=== PATIENT | male | born 1980 | race Caucasian/White ===

== ENCOUNTER 2021-02-17 14:18 | Emergency (ER) | payer OTHER ==
[2021-02-17] MEDS ORDERED: Diazepam 5 MG TAB ONE (15:04)
[2021-02-17] MEDS ORDERED: Ketorolac Tromethamine 30 MG/ML VIAL ONE (15:04)
== END 2021-02-17 16:58 | disposition left against medical advice (07) ==
LOC: ERS 14:18
DX: M62.830 Muscle spasm of back (principal); M54.2 Cervicalgia; F17.210 Nicotine dependence, cigarettes, uncomplicated
CPT/HCPCS: 96372; 99283; J1885

== ENCOUNTER 2021-03-26 09:13 | Inpatient (IN) | payer SELFPAY ==
[2021-03-26 10:44] LABS: #Eosinphils 0.3 thou/uL (0.0-0.7); #Lymphocytes 1.7 thou/uL (1.20-3.40); #Monocytes 0.5 thou/uL (0.11-0.59); #Neutrophils 6.5 thou/uL (1.40-6.50); %Basophils 0.2 % (0.0-1.0); %Eosinophils 2.9 % (0.0-10.0); %Lymphocytes 18.8 % (21.0-51.0); %Monocytes 5.8 % (0.0-10.0); %Neutrophils 72.3 % (42.0-75.0); Hemoglobin 16.4 g/dL (14.0-18.0); Mean Corpuscular HGB CONC 33.1 g/dL (32.0-36.0); Mean Corpuscular Hemoglobin 31.6 pg (27.0-31.0); Mean Corpuscular Volume 95.7 fL (78.0-98.0); Mean Platelet Volume 6.6 fL (7.4-10.4); Platelet Count 259 thou/uL (130-400); RBC Distribution Width 13.6 % (11.5-14.5); Red Blood Cell (RBC) Count 5.17 mill/uL (4.70-6.10)
[2021-03-26] MEDS ORDERED: Lorazepam 2 MG/ML VIAL ONE (11:44)
[2021-03-26] MEDS ORDERED: Morphine 4 MG/ML VIAL ONE (11:44)
[2021-03-26 12:07] LABS: Albumin 3.5 g/dL (3.5-5.0)
[2021-03-26 12:08] LABS: Chloride 109 mmol/L (98-107); Potassium 3.5 mmol/L (3.5-5.1); Sodium 140 mmol/L (136-145)
[2021-03-26 12:09] LABS: Calcium 8.9 mg/dL (7.8-10.44); Glucose 109 mg/dL (70-105)
[2021-03-26 12:10] LABS: Globulin 2.9 g/dL (2.4-3.5); Protein, Total 6.4 g/dL (6.0-8.3)
[2021-03-26 12:11] LABS: Anion Gap 12 mmol/L (10-20); Bilirubin, Total 0.3 mg/dL (0.2-1.2); Carbon Dioxide 23 mmol/L (22-29)
[2021-03-26 12:12] LABS: Alkaline Phosphatase 60 U/L (40-110); CRP (Inflammatory) 1.01 mg/dL (= or < 0.5)
[2021-03-26 12:13] LABS: Calc. Creatinine Clearance 0 mL/min (70-130)
[2021-03-26 12:14] LABS: BUN (Urea Nitrogen) 13 mg/dL (8.9-20.6)
[2021-03-26 12:15] LABS: ALT (SGPT) 30 U/L (8-55); AST (SGOT) 19 U/L (5-34)
[2021-03-26 12:33] LABS: SARS-CoV-2 NAA Rapid Test Not Detected (NotDetected)
[2021-03-26] MEDS ORDERED: Iopamidol-370 76% 500 ML 1 ML ONE (12:43)
[2021-03-26] MEDS ORDERED: Magnevist 469MG/ML 20 ML VIAL ONE ×4 (12:59)
[2021-03-26 14:15] LABS: Hemoglobin A1c 5.7 % (4.0-6.0)
[2021-03-26 16:59] VITALS: BMI 38.9
[2021-03-26 18:21] LABS: Syphilis Antibody Nonreactive (Nonreactive); Syphilis Antibody Index 0.05 S/CO (<1.00 Non-Reactive)
[2021-03-26] MEDS ORDERED: Acetaminophen/Codeine 30-300mg Tablet PO PRN (18:25)
[2021-03-26 18:26] LABS: Vitamin B12 316 pg/mL (211-911)
[2021-03-26] MEDS ORDERED: Pantoprazole 40 MG VIAL IVP SCH ×2 (18:30→21:00)
[2021-03-26 18:34] LABS: HBCM Index 0.05 S/CO (0-0.79); HBSAB Concentration Less than 8.00 mIU/mL; HBSAg Index 0.63 S/CO (0-0.99); HIV (1/2) Antibody/Antigen Non-Reactive (NonReactive); HIV 1/2 INDEX 0.12 S/CO (<1.00); Hep B Core Total Ab Non-Reactive (NonReactive); Hep B Core Total Index 0.09 S/CO (0-0.79); Hep B Surf AB Non-Reactive (NonReactive); Hep B Surf Ag Non-Reactive S/CO (NonReactive); Hep C IgG Ab Non-Reactive (NonReactive); Hep C Index 0.13 S/CO (0-0.79); Hepatitis B Core IgM Abs Non-Reactive (NonReactive)
[2021-03-26] MEDS ORDERED: FLU VACC QS2021-22(6MOS UP)/PF 60 MCG/0.5 ML SYRINGE IM ONE (18:45)
[2021-03-26] MEDS ORDERED: Dexamethasone 10 MG in Sodium Chloride 0.9% 50 ML IVPB SCH (18:45)
[2021-03-26] MEDS: traMADol HCl 50 MG TAB PO PRN (20:14)
[2021-03-26] MEDS: Sodium Chloride 0.9% 1,000 ML IV SCH (20:17)
[2021-03-26] MEDS ORDERED: Sterile Water 10 ML ONE (21:56)
[2021-03-26] MEDS: Acetaminophen 325 MG TAB PO PRN (23:19)
[2021-03-26 23:38] LABS: Amphetamine Detected (NotDetected); Barbiturates Screen Not Detected (NotDetected); Benzodiazepine Screen Detected (NotDetected); Cocaine Metabolite Screen Not Detected (NotDetected); Methadone Not Detected (NotDetected); Methamphetamine Detected (NotDetected); Opiate Screen Detected (NotDetected); Oxycodone Screen Not Detected (NotDetected); Phencyclidine (PCP) Not Detected (NotDetected); THC/Cannabinoid Screen Detected (NotDetected); Tricyclic Screen Not Detected (NotDetected)
[2021-03-27 00:08] LABS: Bacteria/HPF None Seen HPF (None Seen); Bilirubin Negative (Negative); Blood, Urine Negative (Negative); Clarity Clear (Clear); Glucose, Urine (Dipstick) Normal (Negative); Ketone, Urine Negative (Negative); Leukocyte Negative Leu/uL (Negative); Nitrite Negative (Negative); Protein, Urine (Dipstick) Negative (Neg-Trace); RBC/HPF 0-3 HPF (0-3); Specific Gravity, Urine 1.034 (1.002-1.036); Squamous Epithelial None Seen HPF (0-3); Urobilinogen Normal mg/dL (Less than 2); WBC/HPF 0-3 HPF (0-3); pH, Urine 5.5 (5.0-9.0)
[2021-03-27 00:09] LABS: Urine Culture Reflex No No
[2021-03-27] MEDS: Dexamethasone 4 MG in Sodium Chloride 0.9% 50 ML IVPB SCH ×2 (00:31→08:09)
[2021-03-27] MEDS ORDERED: Dexamethasone 4 MG in Sodium Chloride 0.9% 50 ML IVPB SCH (08:00)
[2021-03-27] MEDS ORDERED: Dexamethasone 10 MG in Sodium Chloride 0.9% 50 ML IVPB SCH (09:00)
[2021-03-27] MEDS ORDERED: Pantoprazole 40 MG VIAL IVP SCH (09:00)
[2021-03-27] MEDS: Dexamethasone 4 mg/ml Vial SLOW IVP SCH ×3 (09:19→21:26)
[2021-03-27] MEDS: Sodium Chloride 0.9% 1,000 ML IV SCH ×2 (09:20→22:26)
[2021-03-27] MEDS: traMADol HCl 50 MG TAB PO PRN ×2 (13:12→21:28)
[2021-03-27] MEDS: Baclofen 10 MG TAB PO SCH ×2 (15:03→21:26)
[2021-03-27 15:34] LABS: INR-International Normal Ratio 0.9; Prothrombin Time 12.5 sec (12.0-14.7)
[2021-03-27 15:35] LABS: PTT 28.8 sec (22.9-36.1)
[2021-03-27] MEDS: Acetaminophen 325 MG TAB PO PRN (19:07)
[2021-03-28] MEDS: Dexamethasone 4 mg/ml Vial SLOW IVP SCH ×4 (02:19→20:27)
[2021-03-28] MEDS: Baclofen 10 MG TAB PO SCH ×3 (09:19→20:27)
[2021-03-28] MEDS: Pantoprazole 40 MG VIAL IVP SCH (10:19)
[2021-03-28] MEDS: Sodium Chloride 0.9% 1,000 ML IV SCH (10:20)
[2021-03-28] MEDS: traMADol HCl 50 MG TAB PO PRN (20:26)
[2021-03-29] MEDS: Dexamethasone 4 mg/ml Vial SLOW IVP SCH ×4 (02:00→20:16)
[2021-03-29] MEDS: Sodium Chloride 0.9% 1,000 ML IV SCH ×2 (02:01→14:44)
[2021-03-29] MEDS ORDERED: ceFAZolin 2 GM/DEX 5% 100 ML BAG ONE (08:08)
[2021-03-29] MEDS: Baclofen 10 MG TAB PO SCH ×3 (08:42→20:15)
[2021-03-29] MEDS: Pantoprazole 40 MG VIAL IVP SCH (08:42)
[2021-03-29] MEDS ORDERED: Neomycin-Polymyxin 1 ML AMP ONE (08:58)
[2021-03-29] MEDS ORDERED: Fentanyl 250 MCG/5 ML VIAL ONE (09:00)
[2021-03-29] MEDS ORDERED: Midazolam HCl 2 mg/2 ml Vial ONE (09:00)
[2021-03-29] MEDS ORDERED: ceFAZolin Sodium/D5W 2 GM in Premix Bag 1 BAG IVPB SCH (09:00)
[2021-03-29] MEDS ORDERED: Glycopyrrolate 0.2 MG/ML 5 ML SYRINGE ONE (09:22)
[2021-03-29] MEDS ORDERED: Dexamethasone 20 MG/5 ML VIAL ONE (09:22)
[2021-03-29] MEDS ORDERED: ePHEDrine 50 MG/ML VIAL ONE (09:22)
[2021-03-29] MEDS ORDERED: Rocuronium Bromide 10 MG/ML (10ML VIAL) ONE (09:22)
[2021-03-29] MEDS ORDERED: PROPOFOL 200 MG/20 ML VIAL ONE (09:22)
[2021-03-29] MEDS ORDERED: PHENYLEPHRINE-NS 100 MCG/ML 10 ML SYRINGE ONE (09:22)
[2021-03-29] MEDS ORDERED: Lidocaine 1% PF 5 ML VIAL ONE (09:22)
[2021-03-29] MEDS ORDERED: Ondansetron PF 4 MG/2 ML Vial ONE (09:22)
[2021-03-29] MEDS ORDERED: Morphine 2 MG/ML VIAL SLOW IVP PRN (12:23)
[2021-03-29] MEDS ORDERED: HYDROmorphone 0.5 MG/0.5 ML SYRINGE ONE ×4 (12:44→14:05)
[2021-03-29] MEDS ORDERED: Promethazine HCl 25 MG/ML VIAL IVPB PRN (12:48)
[2021-03-29] MEDS ORDERED: Promethazine HCl 25 MG/ML VIAL IM PRN (12:48)
[2021-03-29] MEDS ORDERED: Ondansetron HCl/PF 4 MG/2 ML Vial IVP PRN (12:48)
[2021-03-29] MEDS ORDERED: HYDROmorphone 2 MG/ML VIAL SLOW IVP PRN (12:48)
[2021-03-29] MEDS ORDERED: Fentanyl 100 MCG/2 ML VIAL ONE (13:58)
[2021-03-29] MEDS ORDERED: CEFAZOLIN 1 GM VIAL SLOW IVP SCH (14:00)
[2021-03-29] MEDS: Morphine 4 MG/ML VIAL SLOW IVP PRN ×2 (16:29→21:31)
[2021-03-29] MEDS: CEFAZOLIN 1 GM VIAL SLOW IVP SCH (17:56)
[2021-03-29] MEDS: traMADol HCl 50 MG TAB PO PRN (18:12)
[2021-03-30] MEDS: traMADol HCl 50 MG TAB PO PRN (00:18)
[2021-03-30] MEDS: CEFAZOLIN 1 GM VIAL SLOW IVP SCH ×3 (01:58→17:59)
[2021-03-30] MEDS: Morphine 4 MG/ML VIAL SLOW IVP PRN ×5 (01:58→22:28)
[2021-03-30] MEDS: Dexamethasone 4 mg/ml Vial SLOW IVP SCH ×6 (01:58→20:11)
[2021-03-30] MEDS: Sodium Chloride 0.9% 1,000 ML IV SCH ×2 (03:21→16:43)
[2021-03-30] MEDS: Gabapentin 300 MG CAP PO SCH ×3 (08:09→20:10)
[2021-03-30] MEDS: Baclofen 10 MG TAB PO SCH ×3 (08:10→20:10)
[2021-03-30] MEDS: Acetaminophen/Codeine 30-300mg Tablet PO PRN ×3 (08:10→21:23)
[2021-03-30] MEDS: Pantoprazole 40 MG VIAL IVP SCH (10:53)
[2021-03-31] MEDS: CEFAZOLIN 1 GM VIAL SLOW IVP SCH ×3 (02:30→17:59)
[2021-03-31] MEDS: Sodium Chloride 0.9% 1,000 ML IV SCH (05:10)
[2021-03-31] MEDS: Acetaminophen/Codeine 30-300mg Tablet PO PRN ×2 (07:11→20:59)
[2021-03-31] MEDS: Gabapentin 300 MG CAP PO SCH ×3 (10:24→20:59)
[2021-03-31] MEDS: Dexamethasone 4 mg/ml Vial SLOW IVP SCH ×3 (10:25→21:01)
[2021-03-31] MEDS: Baclofen 10 MG TAB PO SCH ×3 (10:25→20:59)
[2021-03-31] MEDS: Morphine 4 MG/ML VIAL SLOW IVP PRN (16:30)
[2021-03-31] MEDS: Pantoprazole 40 MG VIAL IVP SCH (17:48)
[2021-04-01] MEDS ORDERED: CEFAZOLIN 1 GM in Sodium Chloride 0.9% 100 ML IVPB SCH (04:45)
[2021-04-01] MEDS ORDERED: Senokot 8.6 MG TAB PO PRN (07:46)
[2021-04-01] MEDS: Dexamethasone 4 mg/ml Vial SLOW IVP SCH ×2 (08:58→21:32)
[2021-04-01] MEDS: Baclofen 10 MG TAB PO SCH ×3 (08:58→21:32)
[2021-04-01] MEDS: Gabapentin 300 MG CAP PO SCH ×3 (08:58→21:31)
[2021-04-01] MEDS: Acetaminophen/Codeine 30-300mg Tablet PO PRN ×3 (08:58→21:39)
[2021-04-01] MEDS: Pantoprazole 40 MG VIAL IVP SCH (09:00)
[2021-04-01] MEDS: Polyethylene Glycol 3350 17 GM Packet PO SCH (09:02)
[2021-04-01] MEDS: tiZANidine HCl 4 MG TAB PO PRN (21:32)
[2021-04-02] MEDS ORDERED: Dexamethasone 4 mg/ml Vial SLOW IVP SCH (09:00)
[2021-04-02] MEDS: Senokot S 8.6-50 MG TAB PO SCH ×4 (09:30→20:01)
[2021-04-02] MEDS: Gabapentin 300 MG CAP PO SCH ×3 (09:30→19:54)
[2021-04-02] MEDS: Baclofen 10 MG TAB PO SCH (09:32)
[2021-04-02] MEDS: Pantoprazole 40 MG VIAL IVP SCH (09:32)
[2021-04-02] MEDS: Polyethylene Glycol 3350 17 GM Packet PO SCH (09:38)
[2021-04-02] MEDS: Acetaminophen 325 MG TAB PO SCH ×2 (13:24→19:55)
[2021-04-02] MEDS: Naproxen 500 MG TAB PO SCH ×2 (13:25→16:58)
[2021-04-02] MEDS: Acetaminophen/Codeine 30-300mg Tablet PO PRN (16:59)
[2021-04-02] MEDS: Famotidine 20 MG TAB PO SCH ×2 (19:54→19:59)
[2021-04-02] MEDS: tiZANidine HCl 4 MG TAB PO PRN (20:08)
[2021-04-03] MEDS: Acetaminophen 325 MG TAB PO SCH ×5 (00:15→23:58)
[2021-04-03] MEDS: Famotidine 20 MG TAB PO SCH ×2 (08:49→20:07)
[2021-04-03] MEDS: Naproxen 500 MG TAB PO SCH ×3 (08:50→17:36)
[2021-04-03] MEDS: Gabapentin 300 MG CAP PO SCH ×3 (08:50→20:07)
[2021-04-03] MEDS: Senokot S 8.6-50 MG TAB PO SCH (08:50)
[2021-04-03] MEDS: Polyethylene Glycol 3350 17 GM Packet PO SCH (08:50)
[2021-04-03] MEDS: Acetaminophen/Codeine 30-300mg Tablet PO PRN (08:52)
[2021-04-03 16:25] LABS: SARS-CoV-2 PCR by NAA Not Detected (NotDetected)
[2021-04-03] MEDS: tiZANidine HCl 4 MG TAB PO PRN ×2 (17:36→22:45)
[2021-04-03] MEDS ORDERED: Acetaminophen 325 MG TAB PO SCH (20:45)
[2021-04-04] MEDS: Acetaminophen 325 MG TAB PO SCH ×2 (05:11→12:12)
[2021-04-04 07:58] VITALS: TEMP 97.9
[2021-04-04] MEDS: tiZANidine HCl 4 MG TAB PO PRN (09:20)
[2021-04-04] MEDS: Naproxen 500 MG TAB PO SCH ×2 (09:20→12:13)
[2021-04-04] MEDS: Gabapentin 300 MG CAP PO SCH (09:20)
[2021-04-04] MEDS: Famotidine 20 MG TAB PO SCH (09:20)
[2021-04-04] MEDS: Polyethylene Glycol 3350 17 GM Packet PO SCH (09:21)
[2021-04-04 12:10] VITALS: BP 120/83
== END 2021-04-04 14:42 | disposition home or self-care (01) | DRG 454 ==
LOC: ERS 09:13 → ERHOLD 12:43 → NEURO 17:05 → SJJU 03-29 14:27
PROVIDERS: ADMIT Student in an Organized Health Care Education/Training Program; ATTEND Student in an Organized Health Care Education/Training Program
PROC: 0RG20AJ Fusion of 2 or more Cervical Vertebral Joints with Interbody Fusion Device, Posterior Approach, Anterior Column, Open Approach (ICD-10-PCS; principal; 2021-03-29)
PROC: 0RG2071 Fusion of 2 or more Cervical Vertebral Joints with Autologous Tissue Substitute, Posterior Approach, Posterior Column, Open Approach (ICD-10-PCS; 2021-03-29)
PROC: 01N10ZZ Release Cervical Nerve, Open Approach (ICD-10-PCS; 2021-03-29)
PROC: 0RB30ZZ Excision of Cervical Vertebral Disc, Open Approach (ICD-10-PCS; 2021-03-29)
DX: M48.02 Spinal stenosis, cervical region (principal); M50.022 Cervical disc disorder at C5-C6 level with myelopathy; M50.023 Cervical disc disorder at C6-C7 level with myelopathy; G61.0 Guillain-Barre syndrome; Z20.822 Contact with and (suspected) exposure to COVID-19; R29.6 Repeated falls; R32 Unspecified urinary incontinence; K59.9 Functional intestinal disorder, unspecified; F17.210 Nicotine dependence, cigarettes, uncomplicated; Z90.49 Acquired absence of other specified parts of digestive tract; Z79.52 Long term (current) use of systemic steroids; Z99.3 Dependence on wheelchair; K59.00 Constipation, unspecified
CPT/HCPCS: 0240U; 36415; 36416; 70553; 72156; 72157; 72158; 74177; 76000; 80053; 80306; 80307; 81001; 82550; 82607; 82746; 83036; 83690; 84443; 84484; 85025; 85610; 85652; 85730; 86140; 86704; 86705; 86706; 86780; 86803; 86850; 86900; 86901; 87340; 87389; 93005; 93970; 96374; 96375; A9579; C1713; C1768; C1776; C9113; J0690; J1100; J1170; J2060; J2250; J2270; J2405; J2704; J3010; J3370; J3490; J7050; Q9967; U0003; U0005

== ENCOUNTER 2022-04-11 02:14 | Inpatient (IN) | payer SELFPAY ==
[2022-04-11 02:39] LABS: #Lymphocytes 1.2 thou/uL (1.20-3.40); #Monocytes 0.5 thou/uL (0.11-0.59); #Neutrophils 3.7 thou/uL (1.40-6.50); %Basophils 0.1 % (0.0-1.0); %Eosinophils 0.3 % (0.0-10.0); %Lymphocytes 21.3 % (21.0-51.0); %Monocytes 9.4 % (0.0-10.0); %Neutrophils 68.8 % (42.0-75.0); Hemoglobin 15.9 g/dL (14.0-18.0); Mean Corpuscular HGB CONC 33.2 g/dL (32.0-36.0); Mean Corpuscular Hemoglobin 30.6 pg (27.0-31.0); Mean Corpuscular Volume 92.3 fl (78.0-98.0); Mean Platelet Volume 8.3 fL (7.4-10.4); Platelet Count 122 10x3/uL (130-400); RBC Distribution Width 13.1 % (11.5-14.5); White Blood Cell (WBC) Count 5.4 10x3/uL (4.8-10.8)
[2022-04-11] MEDS ORDERED: cefTRIAXone\\ROCEPHIN 1 GM VIAL ONE (02:53)
[2022-04-11] MEDS ORDERED: methylPREDNISolone Sod Succ/PF 125 MG/2 ML VIAL ONE (02:53)
[2022-04-11 02:57] LABS: ALT (SGPT) 25 U/L (8-55); AST (SGOT) 24 U/L (5-34); Albumin 3.8 g/dL (3.5-5.0); Alkaline Phosphatase 67 U/L (40-110); Anion Gap 13 mmol/L (10-20); BUN (Urea Nitrogen) 8 mg/dL (8.9-20.6); Bilirubin, Total 0.4 mg/dL (0.2-1.2); Calc. Creatinine Clearance 0 mL/min (70-130); Calcium 8.2 mg/dL (7.8-10.44); Carbon Dioxide 19 mmol/L (22-29); Chloride 104 mmol/L (98-107); Estimated GFR 119; Glucose 110 mg/dL (70-105); Potassium 3.4 mmol/L (3.5-5.1); Protein, Total 6.8 g/dL (6.0-8.3); Sodium 133 mmol/L (136-145)
[2022-04-11] MEDS ORDERED: Albuterol Sulfate 2.5 mg/0.5 ml Neb ONE (03:58)
[2022-04-11] MEDS ORDERED: Azithromycin 500 MG VIAL ONE (04:46)
[2022-04-11 05:05] LABS: SARS-CoV-2 NAA Rapid Test Not Detected (NotDetected)
[2022-04-11] MEDS ORDERED: Sodium Chloride 0.9% 1,000 ML IV SCH (06:00)
[2022-04-11 08:48] VITALS: BMI 38.7
[2022-04-11] MEDS: Oseltamivir 75 MG CAP PO SCH ×2 (09:32→20:14)
[2022-04-11] MEDS ORDERED: Guaifenesin DM 100-10/5 ML UDCUP PO PRN (11:00)
[2022-04-11] MEDS ORDERED: Ondansetron PF 4 MG/2 ML Vial IVP PRN (11:00)
[2022-04-11] MEDS ORDERED: Acetaminophen 650 MG Suppository PR PRN (11:00)
[2022-04-11] MEDS ORDERED: Ondansetron ODT 4 MG TAB PO PRN (11:00)
[2022-04-11] MEDS ORDERED: Albuterol Sulfate 2.5 mg/3 ml Neb EZPAP PRN (11:01)
[2022-04-11] MEDS ORDERED: Electrolyte Replacement Protocol 1 EACH FS SCH (11:15)
[2022-04-11] MEDS ORDERED: Electrolyte Replacement Protocol FS PRN (13:00)
[2022-04-11] MEDS ORDERED: Potassium Chloride 20 MEQ TAB PO SCH (13:00)
[2022-04-11 13:16] LABS: Magnesium 1.9 mg/dL (1.6-2.6); Phosphorus 2.8 mg/dL (2.3-4.7)
[2022-04-11] MEDS ORDERED: Iopamidol-370 76% 500 ML 1 ML ONE (16:02)
[2022-04-11] MEDS: Acetaminophen 325 MG TAB PO PRN (20:14)
[2022-04-12] MEDS ORDERED: Vancomycin HCl 2.5 GM in Sodium Chloride 0.9% 500 ML IVPB SCH (02:00)
[2022-04-12] MEDS ORDERED: Magnesium 2 GM/50 ML(in water) 2 GM in Premix Bag 1 BAG IVPB SCH (02:30)
[2022-04-12 06:55] LABS: #Lymphocytes 0.9 thou/uL (1.20-3.40); #Monocytes 0.4 thou/uL (0.11-0.59); #Neutrophils 1.7 thou/uL (1.40-6.50); %Basophils 0.8 % (0.0-1.0); %Eosinophils 0.8 % (0.0-10.0); %Lymphocytes 29.1 % (21.0-51.0); %Monocytes 13.5 % (0.0-10.0); %Neutrophils 55.8 % (42.0-75.0); Hemoglobin 15.9 g/dL (14.0-18.0); Mean Corpuscular HGB CONC 32.7 g/dL (32.0-36.0); Mean Corpuscular Hemoglobin 30.6 pg (27.0-31.0); Mean Corpuscular Volume 93.7 fl (78.0-98.0); Platelet Count 108 10x3/uL (130-400); RBC Distribution Width 13.1 % (11.5-14.5); Red Blood Cell (RBC) Count 5.18 mill/uL (4.70-6.10)
[2022-04-12 07:15] LABS: Anion Gap 12 mmol/L (10-20); BUN (Urea Nitrogen) 5 mg/dL (8.9-20.6); Calc. Creatinine Clearance 222 mL/min (70-130); Calcium 8.1 mg/dL (7.8-10.44); Carbon Dioxide 24 mmol/L (22-29); Chloride 105 mmol/L (98-107); Estimated GFR 119; Glucose 110 mg/dL (70-105); Magnesium 2.5 mg/dL (1.6-2.6); Potassium 3.7 mmol/L (3.5-5.1); Sodium 137 mmol/L (136-145)
[2022-04-12] MEDS ORDERED: Prevnar 13-Val Conj/PF 0.5 ML SYRINGE IM ONE (09:00)
[2022-04-12] MEDS ORDERED: FLU VACC QS2022-23(6MOS UP)/PF 60 MCG/0.5 ML SYRINGE IM ONE (09:00)
[2022-04-12] MEDS: Enoxaparin Sodium 40 MG/0.4 ML SYRINGE SC SCH (09:44)
[2022-04-12] MEDS: Oseltamivir 75 MG CAP PO SCH ×2 (09:44→20:11)
[2022-04-12] MEDS ORDERED: Vancomycin 1.5 GRAM/300 ML BAG 1.5 GM in Premix Bag 1 BAG IVPB SCH (10:00)
[2022-04-12] MEDS: Benzonatate 100 MG CAP PO PRN (20:11)
[2022-04-12] MEDS: Acetaminophen 325 MG TAB PO PRN (20:12)
[2022-04-13] MEDS: Acetaminophen 325 MG TAB PO PRN ×3 (00:25→17:44)
[2022-04-13 07:36] LABS: #Eosinphils 0.1 thou/uL (0.0-0.7); #Monocytes 0.4 thou/uL (0.11-0.59); #Neutrophils 1.4 thou/uL (1.40-6.50); %Basophils 0.7 % (0.0-1.0); %Eosinophils 2.8 % (0.0-10.0); %Lymphocytes 33.2 % (21.0-51.0); %Monocytes 14.2 % (0.0-10.0); %Neutrophils 49.1 % (42.0-75.0); Hemoglobin 15.7 g/dL (14.0-18.0); Mean Corpuscular HGB CONC 32.4 g/dL (32.0-36.0); Mean Corpuscular Hemoglobin 30.3 pg (27.0-31.0); Mean Corpuscular Volume 93.8 fl (78.0-98.0); Mean Platelet Volume 8.4 fL (7.4-10.4); Platelet Count 110 10x3/uL (130-400); RBC Distribution Width 13.2 % (11.5-14.5); Red Blood Cell (RBC) Count 5.17 mill/uL (4.70-6.10); White Blood Cell (WBC) Count 2.9 10x3/uL (4.8-10.8)
[2022-04-13 07:52] LABS: Anion Gap 10 mmol/L (10-20); BUN (Urea Nitrogen) 7 mg/dL (8.9-20.6); Calc. Creatinine Clearance 210 mL/min (70-130); Calcium 8.1 mg/dL (7.8-10.44); Carbon Dioxide 26 mmol/L (22-29); Chloride 104 mmol/L (98-107); Estimated GFR 117; Glucose 107 mg/dL (70-105); Potassium 3.2 mmol/L (3.5-5.1); Sodium 137 mmol/L (136-145)
[2022-04-13] MEDS: Oseltamivir 75 MG CAP PO SCH ×2 (09:45→19:49)
[2022-04-13] MEDS: Enoxaparin Sodium 40 MG/0.4 ML SYRINGE SC SCH (09:46)
[2022-04-13] MEDS ORDERED: Potassium Chloride 20 MEQ TAB PO SCH (13:30)
[2022-04-13] MEDS: Benzonatate 100 MG CAP PO PRN (19:50)
[2022-04-14 06:58] LABS: Hemoglobin 15.7 g/dL (14.0-18.0); Mean Corpuscular HGB CONC 33.3 g/dL (32.0-36.0); Mean Corpuscular Hemoglobin 30.9 pg (27.0-31.0); Mean Corpuscular Volume 92.6 fl (78.0-98.0); Mean Platelet Volume 8.3 fL (7.4-10.4); Platelet Count 117 10x3/uL (130-400); RBC Distribution Width 13.1 % (11.5-14.5); White Blood Cell (WBC) Count 2.9 10x3/uL (4.8-10.8)
[2022-04-14 07:36] LABS: Anion Gap 9 mmol/L (10-20); BUN (Urea Nitrogen) 9 mg/dL (8.9-20.6); Calc. Creatinine Clearance 216 mL/min (70-130); Calcium 8.3 mg/dL (7.8-10.44); Carbon Dioxide 28 mmol/L (22-29); Chloride 103 mmol/L (98-107); Estimated GFR 118; Glucose 104 mg/dL (70-105); Potassium 3.5 mmol/L (3.5-5.1); Sodium 136 mmol/L (136-145)
[2022-04-14 08:35] LABS: Band 18 % (5-11); Eosinophils 1 % (0-10); Lymphocytes 50 % (21-51); MDiff Complete? YES; Metamyelocyte 1 % (0-0); Monocytes 8 % (0-10); Myelocyte 1 % (0-0); Neutrophil 21 % (42-75); Platelet Morphology Comment Appears Decreased; Polychromasia SLIGHT = 2-3 cells (100X) (0-2/hpf)
[2022-04-14] MEDS: Oseltamivir 75 MG CAP PO SCH (08:57)
[2022-04-14] MEDS ORDERED: Sodium Chloride 0.9% 500 ML IV SCH (09:00)
[2022-04-14] MEDS ORDERED: Sodium Chloride 0.9% 1,000 ML IV SCH (09:00)
[2022-04-14] MEDS: Enoxaparin Sodium 40 MG/0.4 ML SYRINGE SC SCH (09:19)
[2022-04-14 12:01] VITALS: TEMP 98.8
[2022-04-14] MEDS ORDERED: Potassium Chloride 20 MEQ TAB PO SCH (13:45)
[2022-04-14 16:12] VITALS: BP 102/62
== END 2022-04-14 19:10 | disposition home or self-care (01) | DRG 193 ==
LOC: ERS 02:14 → SUATTDRO 02:14 → MSONC 08:42 → T4-A 21:12
PROVIDERS: ADMIT Student in an Organized Health Care Education/Training Program; ATTEND Internal Medicine
DX: J10.01 Influenza due to other identified influenza virus with the same other identified influenza virus pneumonia (principal); J96.01 Acute respiratory failure with hypoxia; E87.6 Hypokalemia; Z79.899 Other long term (current) drug therapy
CPT/HCPCS: 36415; 71045; 71275; 80048; 80053; 83605; 83735; 83880; 84100; 84484; 85025; 85379; 87040; 87149; 93005; 94640; 96374; 96375; J0456; J0696; J2930; J3370; J3475; J7030; J7050; J7611; J7620; Q9967